=== PATIENT | female | born 1945 | race Caucasian/White ===

== ENCOUNTER 2018-10-20 17:45 | Observation (INO) ==
[2018-10-20] MEDS ORDERED: Aspirin 325 MG TABLET PO ONE (18:07)
--- NOTE | 2018-10-20 18:14 | Emergency Department Note ---
Disposition Clinical Impression: Chest pain Qualifiers: Chest pain type: unspecified Qualified Code(s): R07.9 - Chest pain, unspecified Disposition: Admitted As Inpatient Condition: Good Forms: ED Satisfaction Letter Time of Disposition: 20:53 Chest Pain HPI - General Chief Complaint: ED Chest Pain Stated Complaint: CP Time Seen by Provider: 10/20/18 17:48 Source: patient Limitations: no limitations - History of Present Illness HPI Narrative: 72 yo woman with chest pain x3 weeks that has woken her from sleep w/ radiation to jaw came to ED 10/20/18 for evaluation. She endorses 1 episode of diaphoresis w/ CP. She said nothing makes the pain worse including exertion, and nothing m akes it better although she has not tried taking NSAIDs. She has also had a stomachache with epigastric pain that has now resolved. Patient also admits feeling more fatigued since CP started. She denies N/V/D, dysuria, fever, recent illness, syncope, numbness or weakness, SOB or pain elsewhere. PMH includes open heart surgery, T2DM managed w/ metformin, COPD and asthma. She is not currently on cardiac medications. She has no history of DVT/PE. She is a former smoker. Her last cardiac workup was in 2009, although she has an appointment with a nursing home assistant in [place] on Monday that she scheduled out of concern for the CP. Severity scale (1-10): 0 - Related Data Home Medications Medication Instructions Recorded Confirmed Albuterol Neb [AccuNeb] 0.63 mg IH QID PRN 03/23/18 10/20/18 Aspirin [Lo-Dose Aspirin EC] 81 mg PO DAILY 03/23/18 10/20/18 Beclomethasone Dipropionate [QVAR 1 puff IH BID 03/23/18 10/20/18 80 mcg REDIHALER] Escitalopram [Lexapro] 30 mg PO DAILY 03/23/18 10/20/18 Ipratropium/Albuterol Sulfate 4 gm IH QID 03/23/18 10/20/18 [Combivent Respimat Inhal [place]] Levothyroxine [Synthroid] 88 mcg PO 0630 03/23/18 10/20/18 Lisinopril [Zestril] 5 mg PO DAILY 03/23/18 10/20/18 Magnesium 30 mg PO DAILY 03/23/18 10/20/18 Meclizine HCl [Verticalm] 25 mg PO QID PRN 03/23/18 10/20/18 Ondansetron [Zofran ODT] 8 mg SL Q8H PRN 03/23/18 10/20/18 Pantoprazole Sodium [Protonix] 40 mg PO DAILY 03/23/18 10/20/18 Rosuvastatin Calcium [Crestor] 10 mg PO DAILY 03/23/18 10/20/18 clonazePAM [Clonazepam] 1 mg PO BID 03/23/18 10/20/18 metFORMIN [Glucophage] 500 mg PO BIDWM 03/23/18 10/20/18 Previous Rx's Medication Instructions Recorded Nystatin [Nystatin Suspension] 5 ml PO QID #200 oral.susp 03/23/18 Allergies Allergy/AdvReac Type Severity Reaction Status Date / Time Sulfa (Sulfonamide Allergy Swelling Verified 03/23/18 12:21 Antibiotics) of Lip/Tongue/Throat Chest Pain PMH - Past Medical History Medical history: Reports: COPD, diabetes, hyperlipidemia, thyroid disease Psychiatric history: Reports: anxiety, depression - Social History Smoking Status: Never smoker Alcohol use: Reports: none Drug use: Reports: none Physical Exam Gen: AOx3, NAD HEENT: No lymphadenopathy, no erythema, no edema. Pupils equal and reactive. Cardio: Regular rate and rhythm, no murmur, no peripheral edema, good perfusion to all extremities, no cyanosis Resp: Equal breath sounds bilaterally, no wheeze, no cough GI: Abdomen soft, nondistended, +diffusely tender to palpation. No ecchymoses, no rash. : No suprapubic tenderness or distention MSK: Normal ROM, no joint swelling or erythema. Sternotomy incision well-healed. Neuro: CNI-XII intact, strength and sensation WNL Psych: Appropriate affect - General Limitations: no limitations General appearance: alert Course Course Narrative: VS stable, patient states HR is normally in 50s. She endorses intermittent epigastric chest pain that continues in ED. EKG, troponin, CBC, CMP, hepatic panel, lipase, CT abd/pelvis ordered. Given 1 NG tab SL for pain relief. - Reevaluation(s) Reevaluation #1: Patient agrees with plan to admit. Her abdominal pain is continuing, but mild. VS stable and BP again normotensive. Time: 20:30 Vital Signs Temperature 98 F 10/20/18 17:53 Pulse Rate 55 10/20/18 17:53 Respiratory Rate 14 10/20/18 17:53 Blood Pressure 128/79 10/20/18 17:53 O2 Sat by Pulse Oximetry 98 10/20/18 17:53 Temperature 98 F 10/20/18 17:53 Pulse Rate 47 10/20/18 20:13 Respiratory Rate 16 10/20/18 20:13 Blood Pressure 128/71 10/20/18 20:13 O2 Sat by Pulse Oximetry 99 10/20/18 20:13 Oxygen Delivery Oxygen Delivery Room Air Chest Pain - MDM Narrative Medical decision making narrative: BP dropped with NG, although patient reported pain completely relieved for a time with NG. Lipase elevated, but no signs of pancreatitis on CT abd/pelvis. Imaging did detect septated 4.cm renal cyst on right kidney. HEART score 6 with neg troponin and no ischemic changes on EKG. CXR negative. Given HEART score, however, plan to admit patient for further evaluation. - Differential Diagnosis Likely: chest pain - Medical Records Medical records reviewed: Yes I reviewed the patient's medical records. - Lab Data Lab results reviewed: Yes I reviewed the patient's lab results. Result diagrams: 10/20/18 17:50 10/20/18 17:50 Lab Results 10/20/18 10/20/18 Range/Units 17:50 17:50 WBC 6.0 (4.3-11.1) K/mcL RBC 4.92 (3.82-4.97) M/mcL Hgb 14.7 (11.5-15.4) g/dL Hct 44.3 (35.3-44.9) % MCV 90.0 (83.0-100.0) fL MCH 29.9 (28.0-33.3) pg MCHC 33.2 (31.6-35.5) g/dL RDW 12.7 (11.5-14.5) % Plt Count 204 (140-400) K/mcL MPV 10.1 (9.4-12.4) fL Immature Gran % 0.2 (0-4) % Seg Neutrophils % 52.2 % Lymphocytes % 33.6 % Monocytes % 8.7 % Eosinophils % 5.0 % Basophils % 0.3 % Neutrophils # 3.1 (1.6-8.9) K/mcL Lymphocytes # 2.0 (0.6-4.6) K/mcL Monocytes # 0.5 (0.0-1.3) K/mcL Eosinophils # 0.3 (0.0-0.6) K/mcL Basophils # 0.0 (0.0-0.2) K/mcL Sodium 138 (136-145) mEq/L Potassium 4.1 (3.5-5.1) mEq/L Chloride 106 (98-107) mEq/L Carbon Dioxide 26 (23-29) mEq/L BUN 9 (8-23) mg/dL Creatinine 0.85 (0.60-1.20) mg/dL Est GFR ( Amer) > 60 (> 60) Est GFR (Non-Af Amer) > 60 (> 60) BUN/Creatinine Ratio 11 (6-26) Glucose 91 (70-105) mg/dL Calculated Osmolality 284 (280-300) Calcium 10.3 (8.6-10.3) mg/dL Total Bilirubin 0.4 (0.3-1.0) mg/dL Direct Bilirubin 0.1 (0.0-0.2) mg/dL Indirect Bilirubin 0.3 (0.0-1.2) mg/dL AST 16 (13-39) Units/L ALT 11 (7-52) Units/L Alkaline Phosphatase 44 (34-104) Units/L Troponin I < 0.03 (< 0.04) ng/mL Serum Total Protein 6.7 (6.4-8.9) g/dL Albumin 4.4 (3.5-5.7) g/dL Globulin 2.3 L (2.4-3.5) g/dL Albumin/Globulin Ratio 1.9 (1.1-2.2) Lipase 352 H (11-82) Units/L - Radiology Data Radiology results reviewed: Yes I reviewed the patient's radiology results. Chest X-Ray 10/20/18 18:21 IMPRESSION: No acute process. D/ / Arnoldo Walsh MD / Arnoldo Walsh MD Interpreting Provider: Arnoldo Walsh MD Abdomen/Pelvis CT 10/20/18 19:35 IMPRESSION: Nonobstructing right nephrolithiasis. 4.9 cm complex right renal cyst. Emphysema. D/ / Krishna Dumont MD / Krishna Dumont MD Interpreting Provider: Krishna Dumont MD - EKG Data EKG attestation: Yes I reviewed and interpreted this EKG. EKG shows normal: sinus rhythm Rate: bradycardia (HR 59) Rhythm: NSR Interpretation: normal EKG Heart Score - Score History: Highly Suspicious EKG: Normal Age: Greater than 65 Risk Factors: Equal/Greater than 3 risk factor or history of atherosclerotic disease Troponin: Less than normal limit HEART Score Total: 6
[2018-10-20 18:26] LABS: Basophils % 0.3 %; Eosinophils # 0.3 K/mcL (0.0-0.6); Hematocrit 44.3 % (35.3-44.9); Hemoglobin 14.7 g/dL (11.5-15.4); Immature Granulocytes % 0.2 % (0-4); Lymphocytes % 33.6 %; Mean Corpuscular HGB Conc 33.2 g/dL (31.6-35.5); Mean Corpuscular Hemoglobin 29.9 pg (28.0-33.3); Mean Platelet Volume 10.1 fL (9.4-12.4); Monocytes # 0.5 K/mcL (0.0-1.3); Monocytes % 8.7 %; Neutrophils # 3.1 K/mcL (1.6-8.9); Platelet Count 204 K/mcL (140-400); Red Blood Count 4.92 M/mcL (3.82-4.97); Red Cell Distribution Width 12.7 % (11.5-14.5); Segmented Neutrophils % 52.2 %
[2018-10-20] MEDS: Nitroglycerin 0.4 MG TAB.SUBL SL SCH ×2 (18:31→22:30)
[2018-10-20 18:49] LABS: Alanine Aminotransferase 11 Units/L (7-52); Albumin 4.4 g/dL (3.5-5.7); Albumin/Globulin Ratio 1.9 (1.1-2.2); Alkaline Phosphatase 44 Units/L (34-104); Aspartate Amino Transferase 16 Units/L (13-39); BUN/Creatinine Ratio 11 (6-26); Bilirubin,Direct 0.1 mg/dL (0.0-0.2); Bilirubin,Indirect 0.3 mg/dL (0.0-1.2); Bilirubin,Total 0.4 mg/dL (0.3-1.0); Blood Urea Nitrogen 9 mg/dL (8-23); Calcium 10.3 mg/dL (8.6-10.3); Carbon Dioxide 26 mEq/L (23-29); Chloride 106 mEq/L (98-107); Globulin 2.3 g/dL (2.4-3.5); Glucose 91 mg/dL (70-105); Lipase 352 Units/L (11-82); Osmolality,Calculated 284 (280-300); Potassium 4.1 mEq/L (3.5-5.1); Sodium 138 mEq/L (136-145); Total Protein 6.7 g/dL (6.4-8.9); Troponin I < 0.03 ng/mL (< 0.04); eGFR For African Americans > 60 (> 60); eGFR For Non-African Americans > 60 (> 60)
[2018-10-20] MEDS ORDERED: Isovue-370 500 ML BOTTLE IVP ONE (18:53)
[2018-10-20] MEDS ORDERED: *HR* FentaNYL (PF) 100 MCG/2 ML VIAL IVP ONE (19:46)
--- NOTE | 2018-10-20 20:58 | Emergency Department Note ---
Disposition Clinical Impression: Chest pain Qualifiers: Chest pain type: unspecified Qualified Code(s): R07.9 - Chest pain, unspecified Disposition: Admitted As Inpatient Condition: Good Time of Disposition: 20:53 General Adult HPI - General Chief complaint: ED Chest Pain Stated complaint: CP Time Seen by Provider: 10/20/18 17:48 Source: patient Limitations: no limitations - History of Present Illness Pain Scale: 0 - Related Data Home Medications Medication Instructions Recorded Confirmed Aspirin [Lo-Dose Aspirin EC] 81 mg PO DAILY 03/23/18 10/21/18 Ipratropium/Albuterol Sulfate 4 gm IH TID 03/23/18 10/21/18 [Combivent Respimat Inhal [place]] Levothyroxine [Synthroid] 88 mcg PO 0630 03/23/18 10/21/18 Lisinopril [Zestril] 5 mg PO QAM 03/23/18 10/21/18 Meclizine HCl [Verticalm] 25 mg PO QID PRN 03/23/18 10/21/18 Pantoprazole Sodium [Protonix] 40 mg PO QAM 03/23/18 10/21/18 Rosuvastatin Calcium [Crestor] 10 mg PO QPM 03/23/18 10/21/18 clonazePAM [Clonazepam] 1 mg PO BID 03/23/18 10/21/18 metFORMIN [Glucophage] 500 mg PO BIDWM 03/23/18 10/21/18 Biotin 1 mg PO QAM 10/21/18 10/21/18 Cetirizine HCl [Allergy Relief] 10 mg PO BID 10/21/18 10/21/18 Escitalopram [Lexapro] 30 mg PO QAM 10/21/18 10/21/18 Lubiprostone [Amitiza] 24 mcg PO DAILY 10/21/18 10/21/18 Magnesium 250 mg PO QPM 10/21/18 10/21/18 Allergies Allergy/AdvReac Type Severity Reaction Status Date / Time Sulfa (Sulfonamide Allergy Swelling Verified 10/21/18 16:30 Antibiotics) of Lip/Tongue/Throat Past Medical History - Past Medical History Medical history: Reports: COPD, diabetes, hyperlipidemia, thyroid disease Psychiatric history: Reports: anxiety, depression - Social History Smoking Status: Never smoker Smokeless Tobacco Status: No Alcohol use: Reports: none Drug use: Reports: none Physical Exam - General Limitations: no limitations General appearance: alert Course Vital Signs Temperature 98 F 10/20/18 17:53 Pulse Rate 55 10/20/18 17:53 Respiratory Rate 14 10/20/18 17:53 Blood Pressure 128/79 10/20/18 17:53 O2 Sat by Pulse Oximetry 98 10/20/18 17:53 Temperature 97.7 F 10/22/18 12:18 Pulse Rate 57 10/22/18 12:18 Respiratory Rate 17 10/22/18 12:18 Blood Pressure 122/74 10/22/18 12:18 O2 Sat by Pulse Oximetry 94 10/22/18 12:18 Oxygen Delivery Oxygen Delivery Room Air Medical Decision Making - Lab Data Result diagrams: 10/20/18 17:50 10/21/18 00:12 Lab Results 10/20/18 10/20/18 10/20/18 Range/Units 17:50 17:50 17:50 WBC 6.0 (4.3-11.1) K/mcL RBC 4.92 (3.82-4.97) M/mcL Hgb 14.7 (11.5-15.4) g/dL Hct 44.3 (35.3-44.9) % MCV 90.0 (83.0-100.0) fL MCH 29.9 (28.0-33.3) pg MCHC 33.2 (31.6-35.5) g/dL RDW 12.7 (11.5-14.5) % Plt Count 204 (140-400) K/mcL MPV 10.1 (9.4-12.4) fL Immature Gran % 0.2 (0-4) % Seg Neutrophils % 52.2 % Lymphocytes % 33.6 % Monocytes % 8.7 % Eosinophils % 5.0 % Basophils % 0.3 % Neutrophils # 3.1 (1.6-8.9) K/mcL Lymphocytes # 2.0 (0.6-4.6) K/mcL Monocytes # 0.5 (0.0-1.3) K/mcL Eosinophils # 0.3 (0.0-0.6) K/mcL Basophils # 0.0 (0.0-0.2) K/mcL Sodium 138 (136-145) mEq/L Potassium 4.1 (3.5-5.1) mEq/L Chloride 106 (98-107) mEq/L Carbon Dioxide 26 (23-29) mEq/L BUN 9 (8-23) mg/dL Creatinine 0.85 (0.60-1.20) mg/dL Est GFR ( Amer) > 60 (> 60) Est GFR (Non-Af Amer) > 60 (> 60) BUN/Creatinine Ratio 11 (6-26) Glucose 91 (70-105) mg/dL Est Mean Plasma Glucose 128 mg/dl Hemoglobin A1c 6.1 H ( - 5.6) % Calculated Osmolality 284 (280-300) Calcium 10.3 (8.6-10.3) mg/dL Total Bilirubin 0.4 (0.3-1.0) mg/dL Direct Bilirubin 0.1 (0.0-0.2) mg/dL Indirect Bilirubin 0.3 (0.0-1.2) mg/dL AST 16 (13-39) Units/L ALT 11 (7-52) Units/L Alkaline Phosphatase 44 (34-104) Units/L Troponin I < 0.03 (< 0.04) ng/mL Serum Total Protein 6.7 (6.4-8.9) g/dL Albumin 4.4 (3.5-5.7) g/dL Globulin 2.3 L (2.4-3.5) g/dL Albumin/Globulin Ratio 1.9 (1.1-2.2) Lipase 352 H (11-82) Units/L Attestation Statement - Attestation Attestation: I examined this patient and my medical decision-making was reviewed with the Resident Physician. I agree with the documented findings, disposition and treatment plan as described except to the extent set forth below. The patient 72-year-old female that presents to emergency department with chief complaint of chest pain. Patient reports that she has prior history of a bypass and states that she has been having intermittent discomfort in her chest. Patient states that time she has had some discomfort in her jaw states she also has had some discomfort in her abdomen as well. Exam patient is awake alert in no acute distress Medical decision management patient's pain was relieved with sublingual nitroglycerin. The patient received aspirin in the ER and also underwent EKG and laboratory testing. The patient's lipase was minimally elevated at CT scan of the abdomen and pelvis showed no evidence of acute pancreatitis. I did show that there was a renal cyst the patient will be admitted to the hospitalist service due to her heart score being 6 I personally supervised and was present for the garvin/critical portions of the following procedures completed by the resident:EKG.
[2018-10-20] MEDS ORDERED: Nitroglycerin 0.4 MG TAB.SUBL SL PRN (21:42)
[2018-10-20] MEDS ORDERED: Ondansetron ODT 4 MG TAB.RAPDIS SL PRN (21:57)
[2018-10-20] MEDS ORDERED: Albuterol Neb 0.63 MG/3 ML VIAL IH PRN (21:57)
--- NOTE | 2018-10-20 22:07 | Internal Med History&Physical ---
Date of Encounter: 10/20/18 Time of Encounter: 22:01 Internal Medicine - H&P: HPI Chief complaint: Chest Pain History of present illness: Ms. Escoto is a 72 year old female with past medical history of COPD, type 2 diabetes, hyperlipidemia, hypertension, CAD s/p CABG who presented to the ED with plans of intermittent chest pain which began around 3 PM this afternoon wh ile the patient was sitting on the couch. Pain was nonradiating episodic and appeared to increase in frequency throughout the day. No aggravating or alleviating factors however pain did resolve after receiving sublingual nitroglycerin here in the ED. Patient also reports that approximately 3 weeks ago she had similar chest pain this time with radiation to her jaw that awoke her from sleep associated with intermittent diaphoresis. This episode was similar to her previous ischemic episode she suffered at the age of 47 but much less in severity, and as a result did not seek medical attention at the time. No reports of aggravating or alleviating factors. She had been living in [place] where a stress test was attempted in 2009 but, patient states she did not tolerate pharmacological stress testing due to anxiety nor nuclear stress testing because of her COPD. Patient reports she has an appointment with a picker box operator up in [place] on Monday where her son resides. Patient also reporting epigastric abdominal pain for the past 3 days which became progressively worse last night associated with bloating. Pain seemed to being exacerbated with food and would then resolve. However last night pain persisted and did not improve. Pain eventually subsided around 1:30 AM. Pain appeared to improve laying down on her stomach. Reports her gallbladder is intact. She denies N/V/D, dysuria, fever, recent illness, syncope, numbness or weakness, SOB or pain elsewhere. Patient also reported previous history of dysphagia requiring balloon dilatation of her esophagus in the remote past. She states that she is careful with regard to avoiding eating meat and other solid foods but has not had any issues recently. Patient is a former smoker and quit shortly after open heart procedure. On arrival patient was afebrile, hemodynamically stable. Laboratory workup was unremarkable aside from a elevated lipase of over 320. EKG showed sinus bradycardia with a heart rate of 56 in the absence of any ST or T-wave changes concerning for ischemia. A CT scan of the abdomen in the setting of her epigastric pain was performed which was notable for a nonobstructing right nephrolithiasis and a 4.9 cm complex right renal cyst. Patient admitted for chest pain evaluation. Past Med Surg Social Fam HX - Past Medical History Medical history: COPD, diabetes, hyperlipidemia, thyroid disease Additional medical history: heart disease Psychiatric history: anxiety, depression - Past Surgical History Additional surgical history: open heart-. 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 - Social History Smoking Status: Never smoker Smokeless Tobacco Status: No Alcohol use: none Drug use: none - Family History Father Hx Family Cardiac Disorders: Yes ([place], CAD) Internal Medicine - H&P: Meds Aspirin [Lo-Dose Aspirin EC] 81 mg PO DAILY 03/23/18 [History] Ipratropium/Albuterol Sulfate [Combivent Respimat Inhal [place]] 4 gm IH TID 03/23/18 [History] Levothyroxine [Synthroid] 88 mcg PO 0630 03/23/18 [History] Lisinopril [Zestril] 5 mg PO QAM 03/23/18 [History] Meclizine HCl [Verticalm] 25 mg PO QID PRN 03/23/18 [History] Pantoprazole Sodium [Protonix] 40 mg PO QAM 03/23/18 [History] Rosuvastatin Calcium [Crestor] 10 mg PO QPM 03/23/18 [History] clonazePAM [Clonazepam] 1 mg PO BID 03/23/18 [History] metFORMIN [Glucophage] 500 mg PO BIDWM 03/23/18 [History] Biotin 1 mg PO QAM 10/21/18 [History] Cetirizine HCl [Allergy Relief] 10 mg PO BID 10/21/18 [History] Escitalopram [Lexapro] 30 mg PO QAM 10/21/18 [History] Lubiprostone [Amitiza] 24 mcg PO DAILY 10/21/18 [History] Magnesium 250 mg PO QPM 10/21/18 [History] Allergy/AdvReac Type Severity Reaction Status Date / Time Sulfa (Sulfonamide Allergy Swelling Verified 10/21/18 16:30 Antibiotics) of Lip/Tongue/Throat All Systems PM: A 10-system review of systems was performed and is negative for pertinent findings except as documented above in the HPI. - Constitutional Constitutional: no chills, no fever(s), no night sweats - EENT Eyes: no change in vision, no discharge, no pain, no photophobia Ears: no ear discharge, no ear pain, no tinnitus Nose, mouth and throat: no dysphagia, no nasal discharge, no neck pain, no sore throat - Cardiovascular Cardiovascular ROS IM: no chest pain, no diaphoresis, no dyspnea, no lightheadedness, no palpitations, no syncope - Respiratory Respiratory: no cough, no dyspnea, no wheezing, no excessive phlegm production - Gastrointestinal Gastrointestinal: no abdominal pain, no diarrhea, no hematemesis, no hematochezia, no melena, no nausea, no vomiting - Genitourinary Genitourinary: no change in urinary stream, no dysuria, no flank pain, no hematuria - Musculoskeletal Musculoskeletal ROS IM: no numbness, no tingling - Integumentary Integumentary IM: no rash, no unusual bruising - Neurological Neurological ROS: no confusion, no convulsions, no focal weakness, no numbness, no tingling, no tremor(s) - Hematologic/Lymphatic Hematologic/Lymphatic: no easy bruising - Constitutional Vitals: Temp Pulse Resp BP Pulse Ox 98.1 F 46 16 129/60 92 10/20/18 21:56 10/20/18 21:56 10/20/18 21:56 10/20/18 21:56 10/20/18 21:56 Exam: General: Alert and oriented Skin:Normal color, no rash, no lesions. HEENT:EOM, pupils equal, round and reactive. Cardiovascular:Normal S1 & S2, no rubs, murmurs or gallops. No JVD. Pulse regular. Lungs:Normal breath sounds, no wheezes or crackles. Abdomen:Soft, mild tenderness to palpation diffusely Extremities:No deformity, no edema or tenderness, no joint swelling or clubbing. Neurological:Normal cognition and motor skills. Pulses:Carotid and radial pulses normal +2. Rest of the physical exam is non contributory Internal Med - H&P Results - Labs CBC & Chem 7: 10/20/18 17:50 10/21/18 00:12 Labs: Short CBC 10/20/18 Range/Units 17:50 WBC 6.0 (4.3-11.1) K/mcL Hgb 14.7 (11.5-15.4) g/dL Hct 44.3 (35.3-44.9) % Plt Count 204 (140-400) K/mcL Neutrophils # 3.1 (1.6-8.9) K/mcL BMP 10/20/18 17:50 Sodium 138 Potassium 4.1 Chloride 106 Carbon Dioxide 26 BUN 9 Creatinine 0.85 Glucose 91 Calcium 10.3 Cardiac Enzymes 10/20/18 Range/Units 17:50 Troponin I < 0.03 (< 0.04) ng/mL Liver Function 10/20/18 Range/Units 17:50 Total Bilirubin 0.4 (0.3-1.0) mg/dL Direct Bilirubin 0.1 (0.0-0.2) mg/dL AST 16 (13-39) Units/L ALT 11 (7-52) Units/L Alkaline Phosphatase 44 (34-104) Units/L Albumin 4.4 (3.5-5.7) g/dL - Impressions ITS Impressions Chest X-Ray 10/20/18 18:21 IMPRESSION: No acute process. D/ / Arnoldo Walsh MD / Arnoldo Walsh MD Interpreting Provider: Arnoldo Walsh MD Abdomen/Pelvis CT 10/20/18 19:35 IMPRESSION: Nonobstructing right nephrolithiasis. 4.9 cm complex right renal cyst. Emphysema. D/ / Krishna Dumont MD / Krishna Dumont MD Interpreting Provider: Krishna Dumont MD - Assessment and Plan (1) Chest pain Current Visit: Yes Status: Acute Assessment and plan: 72-year-old female with history of coronary artery disease status post open heart revascularization at the age of 47 presenting with intermittent episodes of substernal chest pain earlier today and reports of an episode of chest pain waking her up with radiation to the jaw similar presentation to previous [place] but with a lesser degree of severity. Improved nitroglycerin. Initial EKG shows sinus bradycardia with a heart rate of 56 with no evidence of ischemia, similar to previous EKG in 2014. Initial troponin negative. Differential includes unstable angina, esophageal spasm, biliary colic or pancreatitis. -Telemetry -Trend troponin -Echocardiogram -Patient states that she has an appointment with cardiology in [place] on Monday. At this time and if troponins remain negative would recommend stress testing, however, due to patient's reported intolerance to pharmacological stress testing, and bronchospastic disease, would discuss with cardiology before proceeding with an appropriate stress testing modality. -Consider cardiology consult Qualifiers: Chest pain type: unspecified Qualified Code(s): R07.9 - Chest pain, unspecified (2) Elevated lipase Current Visit: Yes Status: Acute Assessment and plan: Patient found to have elevated lipase of 352 in the setting of reported 3 day history of epigastric pain which improved by laying on her stomach. CT scan of her abdomen showing no evidence of acute pancreatitis. Unclear patient passed a stone, no elevation in LFTs, but does state her gallbladder is intact -We will reassess lipase in the morning -Consider further workup with a right upper quadrant ultrasound. (3) COPD (chronic obstructive pulmonary disease) Current Visit: Yes Status: Acute Assessment and plan: No evidence of acute exacerbation. -Resume home inhalers Qualifiers: COPD type: unspecified COPD Qualified Code(s): J44.9 - Chronic obstructive pulmonary disease, unspecified (4) CAD (coronary artery disease) Current Visit: Yes Status: Acute Assessment and plan: History of coronary artery disease status post open heart revascularization at the age of 47. -Continue aspirin and GEO inhibitor. Patient not currently on beta daksha possibly due to bronchospastic disease. Qualifiers: Associated angina: with unspecified angina Qualified Code(s): I25.119 - Atherosclerotic heart disease of [place] coronary artery with unspecified angina pectoris (5) DVT prophylaxis Current Visit: Yes Status: Acute Assessment and plan: Subcutaneous heparin - Time Spent With Patient Total time spent is greater than 50% in coordination of care (as documented) at patient's floor/unit and/or counseling patient:
[2018-10-20] MEDS: clonazePAM 1 MG TABLET PO SCH (23:05)
[2018-10-20] MEDS: *HR* Heparin 5,000 UNIT/ML VIAL SQ SCH (23:05)
[2018-10-21 00:44] LABS: BUN/Creatinine Ratio 8 (6-26); Blood Urea Nitrogen 7 mg/dL (8-23); Calcium 9.2 mg/dL (8.6-10.3); Carbon Dioxide 25 mEq/L (23-29); Chloride 107 mEq/L (98-107); Glucose 162 mg/dL (70-105); Osmolality,Calculated 290 (280-300); Potassium 3.7 mEq/L (3.5-5.1); Sodium 139 mEq/L (136-145); eGFR For African Americans > 60 (> 60); eGFR For Non-African Americans > 60 (> 60)
[2018-10-21] MEDS: *HR* Heparin 5,000 UNIT/ML VIAL SQ SCH ×3 (05:12→20:45)
[2018-10-21 06:46] LABS: Estimated Average Glucose 128 mg/dl
[2018-10-21] MEDS ORDERED: NON-FORMULARY MEDICATION 1 EACH EACH (Magnesium 30 MG) PO SCH (09:00)
[2018-10-21] MEDS: (Combivent Respimat InHALER) IH SCH ×2 (09:03→11:38)
[2018-10-21] MEDS: Aspirin 81 MG TAB.CHEW PO SCH (09:10)
[2018-10-21] MEDS: clonazePAM 1 MG TABLET PO SCH ×2 (09:11→20:45)
[2018-10-21] MEDS ORDERED: QVAR 80 MCG IH SCH (10:00)
--- NOTE | 2018-10-21 12:53 | Internal Med Progress Note ---
Hospitalist Progress Note - Encounter Date of Encounter: 10/21/18 Time of Encounter: 12:33 - Subjective Interval History: Was seen and examined at bedside we did have a long discussion concerning cardiac stress test patient is adamant that she does not want to proceed with a stress test and that she does have an appointment with cardiology in [place] on Monday. We will perform upper quadrant US Lipas slightly elevated some slight tenderness to palpation in right quadrant. Discussed treatment plan with the patient who verbalizes understanding - Exam Vitals: Temp Pulse Resp BP Pulse Ox 97.8 F 52 16 106/70 91 10/21/18 11:05 10/21/18 11:05 10/21/18 11:05 10/21/18 11:05 10/21/18 11:05 Exam: General: Alert and oriented Skin:Normal color, no rash, no lesions. HEENT:EOM, pupils equal, round and reactive. Cardiovascular:Normal S1 & S2, no rubs, murmurs or gallops. No JVD. Pulse regular. Lungs:Normal breath sounds, no wheezes or crackles. Abdomen:Soft, mild tenderness to palpation diffusely Extremities:No deformity, no edema or tenderness, no joint swelling or clubbing. Neurological:Normal cognition and motor skills. Pulses:Carotid and radial pulses normal +2. Rest of the physical exam is non contributory - Assessment and Plan (1) Chest pain Current Visit: Yes Status: Acute Assessment and Plan: 72-year-old female with history of coronary artery disease status post open heart revascularization at the age of 47 presenting with intermittent episodes of substernal chest pain earlier today and reports of an episode of chest pain waking her up with radiation to the jaw similar presentation to previous OR but with a lesser degree of severity. Improved nitroglycerin. Initial EKG shows sinus bradycardia with a heart rate of 56 with no evidence of ischemia, similar to previous EKG in 2014. Initial troponin negative. Differential includes unstable angina, esophageal spasm, biliary colic or pancreatitis. -Telemetry -Trend troponin -Echocardiogram -Patient states that she has an appointment with cardiology in [place] on Monday. At this time and if troponins remain negative would recommend stress testing, however, due to patient's reported intolerance to pharmacological stress testing, and bronchospastic disease, would discuss with cardiology before proceeding with an appropriate stress testing modality. -Consider cardiology consult 10/21 Patient has not had any chest pain during this visit EKG with no acute changes Troponins have been negative 3 Echocardiogram is pending at this time Patient is refusing cardiac stress test-would like to follow-up with cardiology in [place] she has appointment on Monday We will consult cardiology I will also check a right upper quadrant ultrasound to rule out gallbladder may be contributing to her discomfort (2) Elevated lipase Current Visit: Yes Status: Acute Assessment and Plan: Patient found to have elevated lipase of 352 in the setting of reported 3 day history of epigastric pain which improved by laying on her stomach. CT scan of her abdomen showing no evidence of acute pancreatitis. Unclear patient passed a stone, no elevation in LFTs, but does state her gallbladder is intact -We will reassess lipase in the morning -Consider further workup with a right upper quadrant ultrasound. 10/21 She did have elevated lipase at 352. Presentation CT scan does not show any evidence of pancreatitis LFTs within normal limits Placed down this morning however continues to experience some tenderness and right upper quadrant We will check right upper quadrant ultrasound (3) COPD (chronic obstructive pulmonary disease) Current Visit: Yes Status: Acute Assessment and Plan: No evidence of acute exacerbation. -Resume home inhalers (4) CAD (coronary artery disease) Current Visit: Yes Status: Acute Assessment and Plan: History of coronary artery disease status post open heart revascularization at the age of 47. -Continue aspirin and GEO inhibitor. Patient not currently on beta daksha possibly due to bronchospastic disease. (5) DVT prophylaxis Current Visit: Yes Status: Acute Assessment and Plan: Subcutaneous heparin - Time Spent with Patient Total time spent is greater than 50% in coordination of care (as documented) at patient's floor/unit and/or counseling patient: Internal Medicine: Result - Labs CBC & Chem 7: 10/20/18 17:50 10/21/18 00:12 Labs: Short CBC 10/20/18 Range/Units 17:50 WBC 6.0 (4.3-11.1) K/mcL Hgb 14.7 (11.5-15.4) g/dL Hct 44.3 (35.3-44.9) % Plt Count 204 (140-400) K/mcL Neutrophils # 3.1 (1.6-8.9) K/mcL BMP 10/20/18 10/21/18 17:50 00:12 Sodium 138 139 Potassium 4.1 3.7 Chloride 106 107 Carbon Dioxide 26 25 BUN 9 7 L Creatinine 0.85 0.89 Glucose 91 162 H Calcium 10.3 9.2 Cardiac Enzymes 10/20/18 10/21/18 Range/Units 17:50 00:12 Troponin I < 0.03 < 0.03 (< 0.04) ng/mL Liver Function 10/20/18 Range/Units 17:50 Total Bilirubin 0.4 (0.3-1.0) mg/dL Direct Bilirubin 0.1 (0.0-0.2) mg/dL AST 16 (13-39) Units/L ALT 11 (7-52) Units/L Alkaline Phosphatase 44 (34-104) Units/L Albumin 4.4 (3.5-5.7) g/dL - Impressions Impressions Chest X-Ray 10/20/18 18:21 IMPRESSION: No acute process. D/ / Arnoldo Walsh MD / Arnoldo Walsh MD Interpreting Provider: Arnoldo Walsh MD Abdomen/Pelvis CT 10/20/18 19:35 IMPRESSION: Nonobstructing right nephrolithiasis. 4.9 cm complex right renal cyst. Emphysema. D/ / Krishna Dumont MD / Krishna Dumont MD Interpreting Provider: Krishna Dumont MD Consult Discharge Plan - Plan Referrals: Chacha Grace APN [Primary Care Provider] - (1) Chest pain Qualifiers: Chest pain type: unspecified Qualified Code(s): R07.9 - Chest pain, unspecified (3) COPD (chronic obstructive pulmonary disease) Qualifiers: COPD type: unspecified COPD Qualified Code(s): J44.9 - Chronic obstructive pulmonary disease, unspecified
[2018-10-21] MEDS: Ipratropium/Albuterol Neb 3 ML IH SCH ×2 (16:03→22:05)
[2018-10-22] MEDS: Ipratropium/Albuterol Neb 3 ML IH SCH ×5 (04:52→23:53)
[2018-10-22] MEDS: *HR* Heparin 5,000 UNIT/ML VIAL SQ SCH ×3 (05:10→21:01)
--- NOTE | 2018-10-22 11:43 | Cardiology Consult Note ---
Date of Encounter: 10/22/18 Time of Encounter: 12:58 Assessment and Plan (1) Chest pain Current Visit: Yes Status: Acute 1. Intermittent chest pain over 3 weeks radiated to jaw; relieved by Nitro SL x 1. Troponins negative x 3. Currently chest pain free. 2. Previously patient states she did not tolerate pharmacological stress testing due to anxiety nor nuclear stress testing because of her COPD. 3. EKG reviewed with no ischemic changes. 24Hr telemetry ave HR 58 sinus wesley on telemetry. 4. On Nitro SL PRN, continue. 4. Echo ordered. Discussed with patient and Dr. Quintero and will consider necessary recs after Echo review. Qualifiers: Chest pain type: unspecified Qualified Code(s): R07.9 - Chest pain, unspecified (2) CAD (coronary artery disease) Current Visit: Yes Status: Acute 1. Previous CABG at age 47 completed at [facility]. 2. On ASA, Statin, ACEI, continue. 3. Does not curretnly follow with a web content producer. Will schedule f/u with [facility] s/p admission. 4. Discussed and reviewed with Dr. Quintero. Qualifiers: Associated angina: with unspecified angina Qualified Code(s): I25.119 - Atherosclerotic heart disease of [place] coronary artery with unspecified angina pectoris Discussion w patient/family: The assessment and plan as outlined above was discussed with the patient and/or family members who expressed understanding and agreement. All questions were answered. Thank you for involving us in the care of your patient. Please call with any questions. History of Present Illness Consult date: 10/22/18 Consult reason: chest pain Chief complaint: chest pain History of present illness: Ms. Escoto is a 72 year old female PMH of COPD, DM2, HLD, HTN, CAD s/p CABG, former smoker. Appt. with web content producer in [place] appt 10/23/18 cancelled. Consulted for intermittent non-radiating chest pain at rest that worsened throughout the day yesterday. Treated with Ntiro SL in ED and resolved. Admits to recent chest pain, diaphoresis episode with radiation to jaw x 3 weeks ago. A dmits to epigastric pain, bloating x 3 days worsening yesterday, aggravated with meals then resolves. Denies syncope, palpitations, diaphoresis, SOB, n/v, n/t, fevers, chills. Denies other alleviating/aggravating factors. Past Med Surg Social Fam HX - Past Medical History Attestation: Yes The following information was validated with the patient. 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 - Social History Smoking Status: Never smoker Smokeless Tobacco Status: No Alcohol use: none Drug use: none - Family History Father Hx Family Cardiac Disorders: Yes (MS, CAD) Medications and Allergies Aspirin [Lo-Dose Aspirin EC] 81 mg PO DAILY 03/23/18 [History] Ipratropium/Albuterol Sulfate [Combivent Respimat Inhal [place]] 4 gm IH TID 03/23/18 [History] Levothyroxine [Synthroid] 88 mcg PO 0630 03/23/18 [History] Lisinopril [Zestril] 5 mg PO QAM 03/23/18 [History] Meclizine HCl [Verticalm] 25 mg PO QID PRN 03/23/18 [History] Pantoprazole Sodium [Protonix] 40 mg PO QAM 03/23/18 [History] Rosuvastatin Calcium [Crestor] 10 mg PO QPM 03/23/18 [History] clonazePAM [Clonazepam] 1 mg PO BID 03/23/18 [History] metFORMIN [Glucophage] 500 mg PO BIDWM 03/23/18 [History] Biotin 1 mg PO QAM 10/21/18 [History] Cetirizine HCl [Allergy Relief] 10 mg PO BID 10/21/18 [History] Escitalopram [Lexapro] 30 mg PO QAM 10/21/18 [History] Lubiprostone [Amitiza] 24 mcg PO DAILY 10/21/18 [History] Magnesium 250 mg PO QPM 10/21/18 [History] Allergy/AdvReac Type Severity Reaction Status Date / Time Sulfa (Sulfonamide Allergy Swelling Verified 10/21/18 16:30 Antibiotics) of Lip/Tongue/Throat All Systems Review: The remainder of the systems were reviewed and are negative - Cardiovascular Cardiovascular: as per HPI Physical Examination Vital Signs, Last 4 Hours Temp Pulse Resp BP Pulse Ox 10/22/18 10:07 16 98 10/22/18 07:38 97.8 F 53 16 101/54 90 General: Conversant, No Apparent Distress HEENT: Atraumatic, Normocephaly, Mucus Membranes Moist Neck: No JVD, Normal carotid pulses Cardiac: Reg Rate and Rhythm, Normal S1 and S2, No Murmur Lungs: Normal Breath Sounds, No Wheeze, Rales, Rhonchi Neuro: Alert and responsive, No focal deficits noted Abdomen: Soft, Non-Tender Skin: No rashes noted on visualized skin Musculoskeletal: No Chest Wall Tenderness Extremities: No Clubbing, No Cyanosis, No Edema, Normal Pulses Results 10/20/18 17:50 10/21/18 00:12 Laboratory Tests 10/20/18 10/21/18 10/21/18 17:50 00:12 00:12 Hgb 14.7 Hct 44.3 BUN 7 L Creatinine 0.89 Est GFR (Non-Af Amer) > 60 Lipase 106 H Laboratory Tests 10/20/18 10/21/18 17:50 00:12 Troponin I < 0.03 < 0.03 Selected Entries 10/21/18 19:45 10/21/18 23:44 10/22/18 03:25 Blood Pressure 101/57 96/52 96/60 10/22/18 07:38 10/22/18 12:18 Blood Pressure 101/54 122/74 Impressions Gallbladder Ultrasound 10/22/18 09:33 IMPRESSION: 1. No evidence of cholecystitis. 2. Mild hepatic steatosis. D/ / Manish Gonzalez MD / Manish Gonzalez MD Interpreting Provider: Manish Gonzalez MD Active Medications Albuterol Sulfate (Accuneb) 0.63 mg IH QIDR PRN PRN Reason: Shortness Of Breath Stop: 04/21/19 21:58 Albuterol/Ipratropium (Duoneb) 3 ml IH QIDR [facility] Stop: 04/22/19 05:01 Last Admin: 10/22/18 10:07 Dose: 3 ml Documented by: Aspirin (Aspirin) 81 mg PO DAILY [facility] Stop: 04/22/19 09:01 Last Admin: 10/21/18 09:10 Dose: 81 mg Documented by: Atorvastatin Calcium (Lipitor) 20 mg PO DAILY [facility] Stop: 04/22/19 09:01 Last Admin: 10/21/18 09:10 Dose: 20 mg Documented by: Clonazepam (Klonopin) 1 mg PO BID [facility] Stop: 04/21/19 22:01 Last Admin: 10/21/18 20:45 Dose: 1 mg Documented by: Escitalopram Oxalate (Lexapro) 30 mg PO DAILY [facility] Stop: 04/22/19 09:01 Last Admin: 10/21/18 09:11 Dose: 30 mg Documented by: Heparin Sodium (Porcine) (Heparin) 5,000 unit SQ Q8HCO [facility]; Protocol Stop: 04/21/19 23:01 Last Admin: 10/22/18 05:10 Dose: 5,000 unit Documented by: Levothyroxine Sodium (Synthroid) 88 mcg PO 0630 [facility] Stop: 04/22/19 06:31 Last Admin: 10/22/18 05:05 Dose: Not Given Documented by: Lisinopril (Zestril) 5 mg PO DAILY [facility]; Protocol Stop: 04/22/19 09:01 Last Admin: 10/21/18 09:11 Dose: Not Given Documented by: Meclizine HCl (Antivert) 25 mg PO QID PRN PRN Reason: DIZZINESS Mometasone Furoate (Asmanex Hfa) 1 puff IH BIDR [facility] Stop: 04/22/19 10:01 Last Admin: 10/22/18 10:07 Dose: 1 puff Documented by: Nitroglycerin (Nitroglycerin) 0.4 mg SL Q5MPRN PRN PRN Reason: Chest Pain Stop: 04/21/19 21:43 Omeprazole (Prilosec) 40 mg PO DAILY [facility] Stop: 04/22/19 09:01 Last Admin: 10/21/18 09:11 Dose: 40 mg Documented by: Ondansetron HCl (Zofran Odt) 8 mg SL Q8H PRN PRN Reason: Nausea - Imaging and Cardiology Echo: pending - EKG Interpretation EKG results cardiology: no diagnostic ischemia Consult Discharge Plan - Plan Referrals: Chacha Grace APN [Primary Care Provider] -
--- NOTE | 2018-10-22 13:01 | Electrocardiograph Report ---
[address] [address] Test Date: 2018-10-20 Pat Name: Ursula Escoto Department: [id number] Room: [facility] Gender: F Leasing Consultant: : 1945 Requested By: Zehra Aceves Order Number: [id number] Reading MD: Berny Lewis Measurements Intervals [place] Rate: 56 P: 75 [place]: 162 QRS: 49 QRSD: 92 T: 74 QT: 448 QTc: 433 Interpretive Statements Sinus rhythm BASELINE ARTIFACT Electronically Signed On 10-22-2018 12:59:43 EDT by Berny Lewis
[2018-10-22] MEDS: clonazePAM 1 MG TABLET PO SCH ×2 (14:04→21:06)
[2018-10-22] MEDS: Aspirin 81 MG TAB.CHEW PO SCH (14:04)
--- NOTE | 2018-10-22 19:26 | Internal Med Progress Note ---
Hospitalist Progress Note - Encounter Date of Encounter: 10/22/18 Time of Encounter: 11:00 - Subjective Interval History: Patient was seen and examined at bedside currently denies any chest pain we did discuss treatment plan she is being evaluated by cardiology at this time- patient's lung sounds are very tight with little air flow patient states this is her baseline we will try some steroids as well as breathing treatments to see if this improves airflow - Exam Vitals: Temp Pulse Resp BP Pulse Ox 97.8 F 69 17 107/59 95 10/22/18 17:11 10/22/18 17:11 10/22/18 17:11 10/22/18 17:11 10/22/18 17:11 Exam: General: Alert and oriented Skin:Normal color, no rash, no lesions. HEENT:EOM, pupils equal, round and reactive. Cardiovascular:Normal S1 & S2, no rubs, murmurs or gallops. No JVD. Pulse regular. Lungs:Normal breath sounds, no wheezes or crackles. Abdomen:Soft, mild tenderness to palpation diffusely Extremities:No deformity, no edema or tenderness, no joint swelling or clubbing. Neurological:Normal cognition and motor skills. Pulses:Carotid and radial pulses normal +2. Rest of the physical exam is non contributory - Assessment and Plan (1) Chest pain Current Visit: Yes Status: Acute Assessment and Plan: 72-year-old female with history of coronary artery disease status post open heart revascularization at the age of 47 presenting with intermittent episodes of substernal chest pain earlier today and reports of an episode of chest pain waking her up with radiation to the jaw similar presentation to previous MD but with a lesser degree of severity. Improved nitroglycerin. Initial EKG shows sinus bradycardia with a heart rate of 56 with no evidence of ischemia, similar to previous EKG in 2014. Initial troponin negative. Differential includes unstable angina, esophageal spasm, biliary colic or pancreatitis. -Telemetry -Trend troponin -Echocardiogram -Patient states that she has an appointment with cardiology in [place] on Monday. At this time and if troponins remain negative would recommend stress testing, however, due to patient's reported intolerance to pharmacological stress testing, and bronchospastic disease, would discuss with cardiology before proceeding with an appropriate stress testing modality. -Consider cardiology consult 10/22 Cardiology has been consulted and appreciate recommendations Cardiac echo Impressions: LVEF 50-55%. Mild left ventricular diastolic dysfunction. Normal right ventricular structure and function. Mild tricuspid regurgitation. No pulmonary hypertension. Ascending aorta not well visualized, but possible mild dilatation. Troponins are negative (2) Elevated lipase Current Visit: Yes Status: Acute Assessment and Plan: Patient found to have elevated lipase of 352 in the setting of reported 3 day history of epigastric pain which improved by laying on her stomach. CT scan of her abdomen showing no evidence of acute pancreatitis. Unclear patient passed a stone, no elevation in LFTs, but does state her gallbladder is intact -We will reassess lipase in the morning -I upper quadrant ultrasound with no evidence of cholecystitis mild hepatic steatosis (3) COPD (chronic obstructive pulmonary disease) Current Visit: Yes Status: Acute Assessment and Plan: No evidence of acute exacerbation. -Resume home inhalers 10/22 Patient does have a limited air exchange very faint wheezing patient states that this is her baseline we will give steroids as well as some breathing treatments to see if we can improve air exchange. Currently sats are stable (4) CAD (coronary artery disease) Current Visit: Yes Status: Acute Assessment and Plan: History of coronary artery disease status post open heart revascularization at the age of 47. -Continue aspirin and GEO inhibitor. Patient not currently on beta daksha possibly due to bronchospastic disease. (5) DVT prophylaxis Current Visit: Yes Status: Acute Assessment and Plan: Subcutaneous heparin - Time Spent with Patient Total time spent is greater than 50% in coordination of care (as documented) at patient's floor/unit and/or counseling patient: Internal Medicine: Result - Labs CBC & Chem 7: 10/20/18 17:50 10/21/18 00:12 - Impressions Impressions Gallbladder Ultrasound 10/22/18 09:33 IMPRESSION: 1. No evidence of cholecystitis. 2. Mild hepatic steatosis. D/ / Manish Gonzalez MD / Manish Gonzalez MD Interpreting Provider: Manish Gonzalez MD Echocardiogram 10/22/18 15:17 Impressions: LVEF 50-55%. Mild left ventricular diastolic dysfunction. Normal right ventricular structure and function. Mild tricuspid regurgitation. No pulmonary hypertension. Ascending aorta not well visualized, but possible mild dilatation. Left Ventricular Wall Motion: Rest Echo Findings All wall segments showed normal motion. Findings: Study Quality * Technically sub-optimal due to clinical status. ECG Findings * Sinus bradycardia, BBB. Left Ventricle * LVEF 50-55%. * Normal LV chamber size, wall thickness and systolic function. * Mild left ventricular diastolic dysfunction. * Atypical septal motion consistent with bundle branch block. Right Ventricle * Normal right ventricular structure and function. Left Atrium * Normal left atrial size. Right Atrium * Normal right atrial size. Interatrial Septum * Interatrial septum not well evaluated. Aortic Valve * Trileaflet aortic valve with normal function. * No aortic stenosis. * No aortic regurgitation. Mitral Valve * Normal mitral valve structure. * No mitral stenosis. * Trace mitral regurgitation. Tricuspid Valve * Normal tricuspid valve structure. * No tricuspid stenosis. * Mild tricuspid regurgitation. * Estimated RVSP is 25 mmHg. * Estimated RA pressure is 3 mmHg. * No pulmonary hypertension. Pulmonic Valve * Pulmonic valve is not well visualized. * No pulmonic stenosis. * No pulmonic regurgitation. Aorta * Ascending aorta not well visualized, but likely mild dilatation 3.8cm. Pericardium * The pericardium appears normal. IVC * The IVC is not dilated. * > 50% respiratory change Consult Discharge Plan - Plan Referrals: Chacha Grace APN [Primary Care Provider] - 10/31/18 10:40 am (1) Chest pain Qualifiers: Chest pain type: unspecified Qualified Code(s): R07.9 - Chest pain, unspecified (3) COPD (chronic obstructive pulmonary disease) Qualifiers: COPD type: unspecified COPD Qualified Code(s): J44.9 - Chronic obstructive pulmonary disease, unspecified (4) CAD (coronary artery disease) Qualifiers: Coronary Disease-Associated Artery/Lesion type: [place] artery [place] vs. transplanted heart: [place] heart Associated angina: with unspecified angina Qualified Code(s): I25.119 - Atherosclerotic heart disease of [place] coronary artery with unspecified angina pectoris
[2018-10-22] MEDS ORDERED: Ipratropium/Albuterol Neb 3 ML ONE (19:44)
[2018-10-22] MEDS: MethylPREDNISolone 40 MG/ML VIAL IVP SCH (21:02)
[2018-10-23] MEDS: Ipratropium/Albuterol Neb 3 ML IH SCH ×6 (03:54→23:44)
[2018-10-23] MEDS: *HR* Heparin 5,000 UNIT/ML VIAL SQ SCH ×3 (05:26→19:30)
[2018-10-23] MEDS: MethylPREDNISolone 40 MG/ML VIAL IVP SCH (05:29)
[2018-10-23] MEDS ORDERED: MethylPREDNISolone 40 MG/ML VIAL IVP SCH (06:00)
[2018-10-23 07:00] LABS: Hematocrit 39.8 % (35.3-44.9); Immature Granulocytes % 0.3 % (0-4); Lymphocytes # 0.6 K/mcL (0.6-4.6); Lymphocytes % 15.2 %; Mean Corpuscular HGB Conc 32.9 g/dL (31.6-35.5); Mean Corpuscular Hemoglobin 30.2 pg (28.0-33.3); Mean Corpuscular Volume 91.7 fL (83.0-100.0); Mean Platelet Volume 10.6 fL (9.4-12.4); Monocytes # 0.1 K/mcL (0.0-1.3); Monocytes % 2.1 %; Neutrophils # 3.2 K/mcL (1.6-8.9); Platelet Count 174 K/mcL (140-400); Red Blood Count 4.34 M/mcL (3.82-4.97); Red Cell Distribution Width 12.7 % (11.5-14.5); Segmented Neutrophils % 82.4 %; White Blood Count 3.9 K/mcL (4.3-11.1)
[2018-10-23 07:07] LABS: Hemoglobin 13.1 g/dL (11.5-15.4)
[2018-10-23 07:20] LABS: BUN/Creatinine Ratio 18 (6-26); Blood Urea Nitrogen 17 mg/dL (8-23); Calcium 9.5 mg/dL (8.6-10.3); Carbon Dioxide 22 mEq/L (23-29); Chloride 107 mEq/L (98-107); Glucose 255 mg/dL (70-105); Osmolality,Calculated 304 (280-300); Sodium 142 mEq/L (136-145); eGFR For African Americans > 60 (> 60); eGFR For Non-African Americans 57 (> 60)
[2018-10-23 07:21] LABS: Albumin 4.2 g/dL (3.5-5.7); Albumin/Globulin Ratio 2.1 (1.1-2.2); Bilirubin,Direct 0.1 mg/dL (0.0-0.2); Bilirubin,Indirect 0.2 mg/dL (0.0-1.2); Bilirubin,Total 0.3 mg/dL (0.3-1.0); Total Protein 6.2 g/dL (6.4-8.9)
--- NOTE | 2018-10-23 09:04 | Cardiology Progress Note ---
Date of Encounter: 10/23/18 Time of Encounter: 09:01 Assessment and Plan (1) Chest pain Current Visit: Yes Status: Acute 1. Intermittent chest pain over 3 weeks radiated to jaw; relieved by Nitro SL x 1. 2. Troponins negative x 3. Currently chest pain free. Continue Nitro SL PRN. 3. Previously patient states she did not tolerate pharmacological stress testing due to high level of anxiety nor nuclear stress testing r/t COPD. 4. EKG reviewed with no ischemic changes. 24Hr telemetry ave HR 58 sinus wesley on telemetry. 5. Echo Reviewed. EF 50-55%. Mild left ventricular diastolic dysfunction. Mild tricuspid regurgitation. No pulmonary hypertension. NSWMA. 6. Discussed care with patient and Dr. Quintero. Discussed modifiable and non- modifiable risk factors associated with pt. and chest pain. Discussed possible procedure education includinng the risks and benefits of stress testing and LHC vs. medical management. At this time, the patient prefers to do medical management and refuses LHC and stress testing interventions. This may be related to her sons current health status. Pt. will f/u with her sales performance analyst. Qualifiers: Qualified Code(s): R07.9 - Chest pain, unspecified (2) CAD (coronary artery disease) Current Visit: Yes Status: Acute 1. Previous CABG at age 47 completed at [facility]. 2. On ASA, Statin, ACEI, continue. On nitro SL; continue PRN for chest pain. 3. Discussed and reviewed with Dr. Quintero. Will f/u with own sales performance analyst as outpatient. Qualifiers: Qualified Code(s): I25.119 - Atherosclerotic heart disease of [place] coronary artery with unspecified angina pectoris Discussion w patient/family: The assessment and plan as outlined above was discussed with the patient and/or family members who expressed understanding and agreement. All questions were answered. Thank you for involving us in the care of your patient. Please call w ith any questions. Subjective Principal diagnosis: Chest pain Interval history: Denies Chest pain. Admits to mild SOB at baseline with high level of halfway anxiety. Objective Vital Signs, Last 4 Hours Temp Pulse Resp BP Pulse Ox 10/23/18 06:23 97.6 F 68 16 113/68 91 General: Conversant, No Apparent Distress HEENT: Atraumatic, Normocephaly, Mucus Membranes Moist Neck: No JVD, Normal carotid pulses Cardiac: Reg Rate and Rhythm, No Murmur Lungs: Other (bilat anterior/posterior exp. wheezes ) Neuro: Alert and responsive, No focal deficits noted Abdomen: Soft, Non-Tender Skin: No rashes noted on visualized skin Musculoskeletal: No Chest Wall Tenderness Extremities: No Clubbing, No Cyanosis, No Edema, Normal Pulses Results 10/23/18 05:52 10/23/18 05:52 Lab Results Laboratory Tests 10/23/18 10/23/18 05:52 05:52 Hgb 13.1 D Hct 39.8 BUN 17 Creatinine 0.96 Est GFR (Non-Af Amer) 57 L Laboratory Tests 10/20/18 10/21/18 17:50 00:12 Troponin I < 0.03 < 0.03 Impressions Gallbladder Ultrasound 10/22/18 09:33 IMPRESSION: 1. No evidence of cholecystitis. 2. Mild hepatic steatosis. D/ / Manish Gonzalez MD / Manish Gonzalez MD Interpreting Provider: Manish Gonzalez MD Echocardiogram 10/22/18 15:17 Impressions: LVEF 50-55%. Mild left ventricular diastolic dysfunction. Normal right ventricular structure and function. Mild tricuspid regurgitation. No pulmonary hypertension. Ascending aorta not well visualized, but possible mild dilatation. Left Ventricular Wall Motion: Rest Echo Findings All wall segments showed normal motion. Active Medications Albuterol Sulfate (Accuneb) 0.63 mg IH QIDR PRN PRN Reason: Shortness Of Breath Stop: 04/21/19 21:58 Albuterol/Ipratropium (Duoneb) 3 ml IH [id number] [facility] Stop: 04/23/19 20:01 Last Admin: 10/23/18 07:24 Dose: 3 ml Documented by: Aspirin (Aspirin) 81 mg PO DAILY [facility] Stop: 04/22/19 09:01 Last Admin: 10/22/18 14:04 Dose: 81 mg Documented by: Atorvastatin Calcium (Lipitor) 20 mg PO DAILY [facility] Stop: 04/22/19 09:01 Last Admin: 10/22/18 14:04 Dose: 20 mg Documented by: Clonazepam (Klonopin) 1 mg PO BID [facility] Stop: 04/21/19 22:01 Last Admin: 10/22/18 21:06 Dose: 1 mg Documented by: Escitalopram Oxalate (Lexapro) 30 mg PO DAILY [facility] Stop: 04/22/19 09:01 Last Admin: 10/22/18 14:04 Dose: 30 mg Documented by: Heparin Sodium (Porcine) (Heparin) 5,000 unit SQ Q8HCO [facility]; Protocol Stop: 04/21/19 23:01 Last Admin: 10/23/18 05:26 Dose: Not Given Documented by: Levothyroxine Sodium (Synthroid) 88 mcg PO 0630 [facility] Stop: 04/22/19 06:31 Last Admin: 10/23/18 05:29 Dose: 88 mcg Documented by: Lisinopril (Zestril) 5 mg PO DAILY [facility]; Protocol Stop: 04/22/19 09:01 Last Admin: 10/22/18 14:04 Dose: 5 mg Documented by: Meclizine HCl (Antivert) 25 mg PO QID PRN PRN Reason: DIZZINESS Methylprednisolone (Solu-Medrol) 40 mg IVP Q12HR [facility] Stop: 04/23/19 19:31 Last Admin: 10/23/18 05:29 Dose: 40 mg Documented by: Mometasone Furoate (Asmanex Hfa) 1 puff IH BIDR [facility] Stop: 04/22/19 10:01 Last Admin: 10/23/18 07:24 Dose: 1 puff Documented by: Nitroglycerin (Nitroglycerin) 0.4 mg SL Q5MPRN PRN PRN Reason: Chest Pain Stop: 04/21/19 21:43 Omeprazole (Prilosec) 40 mg PO DAILY [facility] Stop: 04/22/19 09:01 Last Admin: 10/22/18 14:04 Dose: 40 mg Documented by: Ondansetron HCl (Zofran Odt) 8 mg SL Q8H PRN PRN Reason: Nausea - Imaging and Cardiology Echo: report reviewed - EKG Interpretation EKG results cardiology: no diagnostic ischemia Consult Discharge Plan - Plan Referrals: Chacha Grace APN [Primary Care Provider] - 10/31/18 10:40 am
--- NOTE | 2018-10-23 09:35 | Discharge Summary ---
- NOTES TO OUTPATIENT PROVIDER Notes to Outpatient Provider: will need to follow up with cardiology as out patient - nitroglycerin sublingual as needed. will give steroid burst. Azithromycin Date of Encounter: 10/23/18 Time of Encounter: 09:33 - Discharge Diagnosis (1) Chest pain Priority: Primary Status: Acute Qualifiers: Chest pain type: unspecified Qualified Code(s): R07.9 - Chest pain, unspecified (2) Elevated lipase Priority: Secondary Status: Acute (3) COPD (chronic obstructive pulmonary disease) Priority: Secondary Status: Acute Qualifiers: COPD type: unspecified COPD Qualified Code(s): J44.9 - Chronic obstructive pulmonary disease, unspecified (4) CAD (coronary artery disease) Priority: Secondary Status: Acute Qualifiers: Coronary Disease-Associated Artery/Lesion type: [place] artery [place] vs. transplanted heart: [place] heart Associated angina: with unspecified angina Qualified Code(s): I25.119 - Atherosclerotic heart disease of [place] coronary artery with unspecified angina pectoris Hospital course: Ms. Escoto is a 72 year old female past medical history of COPD type 2 diabetes hyperlipidemia hypertension CAD status post CABG presented to [facility] ED with intermittent chest pain which initiated while at rest. Pain was nonradiating increased in frequency throughout the day but there were no aggravating or re lieving factors. However after arriving to the ED patient was given nitroglycerin which did resolve. Patient has been experiencing similar pain the past month which radiated to her jaw will woke her from sleep with intermittent diaphoresis. Originally patient has declined stress test she is unable to perform due to increased anxiety and COPD-she states she attempted stress in 2009 and was unable to complete due to these factors. She is to follow-up with a highway maintenance supervisor in [place] on Monday. Patient states she has been under a lot of stress since her son has colon cancer as well as her ex- is very L and she has been caring for them. Troponins have been negative cardiac echo with EF of 50-55% patient was seen by cardiology who offered patient a stress test and [facility] but patient has declined. Cardiology is recommending continuation of aspirin and statin patient is unable take a beta daksha due to severe COPD - when necessary nitroglycerin added per cardiology's recommendations. Patient will follow-up with cardiology as outpatient for further workup and testing. Patient did have a elevation and lipase on presentation however this has trended down since admission and hepatic panel has been normal. We did obtain a right upper quadrant ultrasound which was negative for any will cystitis and CT of the abdomen with nothing acute. Patient has not been experiencing any abdominal pain and will have patient follow-up as outpatient with PCP. Patient does have some wheezing throughout her lung huertas and limited air exchange-A she was given IV Solu-Medrol during admission- however patient continues to experience some shortness of breath as well as tightness in her chest we will increase her IV steroids and monitor overnight adding azithromycin as well. We will defer discharge at this time and reevaluate in the a.m. - Time Spent with Patient Total time spent providing and/or coordinating discharge services: - Discharge Medications Prescriptions: New Nitroglycerin 0.4 mg SL Q5MPRN PRN #30 tab.subl PRN Reason: Chest Pain Continued Biotin 1 mg PO QAM Escitalopram [Lexapro] 30 mg PO QAM Magnesium 250 mg PO QPM metFORMIN [Glucophage] 500 mg PO BIDWM Aspirin [Lo-Dose Aspirin EC] 81 mg PO DAILY Levothyroxine [Synthroid] 88 mcg PO 0630 clonazePAM [Clonazepam] 1 mg PO BID Pantoprazole Sodium [Protonix] 40 mg PO QAM No Action Cetirizine HCl [Allergy Relief] 10 mg PO BID Lubiprostone [Amitiza] 24 mcg PO DAILY Meclizine HCl [Verticalm] 25 mg PO QID PRN PRN Reason: Dizziness Rosuvastatin Calcium [Crestor] 10 mg PO QPM Ipratropium/Albuterol Sulfate [Combivent Respimat Inhal [place]] 4 gm IH TID Lisinopril [Zestril] 5 mg PO QAM Home Medications: Aspirin [Lo-Dose Aspirin EC] 81 mg PO DAILY 03/23/18 [History] Ipratropium/Albuterol Sulfate [Combivent Respimat Inhal [place]] 4 gm IH TID 03/23/18 [History] Levothyroxine [Synthroid] 88 mcg PO 0630 03/23/18 [History] Lisinopril [Zestril] 5 mg PO QAM 03/23/18 [History] Meclizine HCl [Verticalm] 25 mg PO QID PRN 03/23/18 [History] Pantoprazole Sodium [Protonix] 40 mg PO QAM 03/23/18 [History] Rosuvastatin Calcium [Crestor] 10 mg PO QPM 03/23/18 [History] clonazePAM [Clonazepam] 1 mg PO BID 03/23/18 [History] metFORMIN [Glucophage] 500 mg PO BIDWM 03/23/18 [History] Biotin 1 mg PO QAM 10/21/18 [History] Cetirizine HCl [Allergy Relief] 10 mg PO BID 10/21/18 [History] Escitalopram [Lexapro] 30 mg PO QAM 10/21/18 [History] Lubiprostone [Amitiza] 24 mcg PO DAILY 10/21/18 [History] Magnesium 250 mg PO QPM 10/21/18 [History] Nitroglycerin 0.4 mg SL Q5MPRN PRN #30 tab.subl 10/23/18 [Rx] Allergies/Adverse Reactions: Allergy/AdvReac Type Severity Reaction Status Date / Time Sulfa (Sulfonamide Allergy Swelling Verified 10/21/18 16:30 Antibiotics) of Lip/Tongue/Throat Date of admission: 10/20/18 21:06 Primary care physician: Chacha Grace APN Consults: 10/21/18 13:21 Consult to Cardiology [CONS] Routine Comment: Consulting Provider: Cardiology Leora Reason for Consult: CP refusing stress hx of CABG Time Notified: 13:21 Call Completed: Yes Discharging clinician: Carissa Loya Anticipated date of discharge: 10/23/18 - Constitutional Vitals: Temp Pulse Resp BP Pulse Ox 97.6 F 68 16 113/68 91 10/23/18 06:23 10/23/18 06:23 10/23/18 06:23 10/23/18 06:23 10/23/18 06:23 Exam: General: Alert and oriented Skin:Normal color, no rash, no lesions. HEENT:EOM, pupils equal, round and reactive. Cardiovascular:Normal S1 & S2, no rubs, murmurs or gallops. No JVD. Pulse regular. Lungs:Normal breath sounds, no wheezes or crackles. Abdomen:Soft, mild tenderness to palpation diffusely Extremities:No deformity, no edema or tenderness, no joint swelling or clubbing. Neurological:Normal cognition and motor skills. Pulses:Carotid and radial pulses normal +2. Rest of the physical exam is non contributory - Patient Status Disposition: Home, Self-Care Condition: Good Functional capacity at discharge: independent ambulation Overall status at discharge: patient is back to baseline - Discharge Instructions Follow Up With: Chacha Grace APN [Primary Care Provider] - 10/31/18 10:40 am - Diet and Activity Activity: increase activity as tolerated Diet: advance to your usual diet
[2018-10-23 09:36] LABS: Lipase 42 Units/L (11-82)
[2018-10-23] MEDS: Aspirin 81 MG TAB.CHEW PO SCH (09:55)
[2018-10-23] MEDS: clonazePAM 1 MG TABLET PO SCH ×2 (09:56→19:30)
--- NOTE | 2018-10-23 10:26 | Internal Med Progress Note ---
Hospitalist Progress Note - Encounter Date of Encounter: 10/23/18 Time of Encounter: 10:26 - Subjective Interval History: Was seen and examined at bedside she was evaluated by cardiology this morning she is declining [facility] any further testing by cardiology she will follow-up as an outpatient. Anticipate discharge today however patient continues to expe rience diminished breath sounds and states that she feels rather tight today. We will increase her IV steroids and the frequency of breathing treatments. We will reevaluate in the a.m. for possible discharge - Exam Vitals: Temp Pulse Resp BP Pulse Ox 97.6 F 68 16 113/68 91 10/23/18 06:23 10/23/18 06:23 10/23/18 06:23 10/23/18 06:23 10/23/18 06:23 Exam: General: Alert and oriented Skin:Normal color, no rash, no lesions. HEENT:EOM, pupils equal, round and reactive. Cardiovascular:Normal S1 & S2, no rubs, murmurs or gallops. No JVD. Pulse regular. Lungs: Breath Sounds are diminished with some faint wheezing Abdomen:Soft, mild tenderness to palpation diffusely Extremities:No deformity, no edema or tenderness, no joint swelling or clubbing. Neurological:Normal cognition and motor skills. Pulses:Carotid and radial pulses normal +2. Rest of the physical exam is non contributory - Assessment and Plan (1) Chest pain Current Visit: Yes Status: Acute Assessment and Plan: 72-year-old female with history of coronary artery disease status post open heart revascularization at the age of 47 presenting with intermittent episodes of substernal chest pain earlier today and reports of an episode of chest pain waking her up with radiation to the jaw similar presentation to previous AL but with a lesser degree of severity. Improved nitroglycerin. Initial EKG shows sinus bradycardia with a heart rate of 56 with no evidence of ischemia, similar to previous EKG in 2014. Initial troponin negative. Differential includes unstable angina, esophageal spasm, biliary colic or pancreatitis. -Telemetry -Trend troponin -Echocardiogram -Patient states that she has an appointment with cardiology in [place] on Monday. At this time and if troponins remain negative would recommend stress testing, however, due to patient's reported intolerance to pharmacological stress testing, and bronchospastic disease, would discuss with cardiology before proceeding with an appropriate stress testing modality. -Consider cardiology consult 10/22 Cardiology has been consulted and appreciate recommendations Cardiac echo Impressions: LVEF 50-55%. Mild left ventricular diastolic dysfunction. Normal right ventricular structure and function. Mild tricuspid regurgitation. No pulmonary hypertension. Ascending aorta not well visualized, but possible mild dilatation. Troponins are negative 10/23 Troponins have been negative cardiac echo with preserved EF she was evaluated by cardiology has offered [facility] however patient has declined patient is advised to follow-up with primary care provider as well as radiology she does have an appointment next week. Radiology recommending continue with aspirin and statin patient and not take beta dkasha due to severe COPD she will also be discharged with when necessary nitroglycerin. Unable take Imdur at this time due to low blood pressure. (2) Elevated lipase Current Visit: Yes Status: Acute Assessment and Plan: Patient found to have elevated lipase of 352 in the setting of reported 3 day history of epigastric pain which improved by laying on her stomach. CT scan of her abdomen showing no evidence of acute pancreatitis. Unclear patient passed a stone, no elevation in LFTs, but does state her gallbladder is intact -We will reassess lipase in the morning -I upper quadrant ultrasound with no evidence of cholecystitis mild hepatic steatosis 10/23 No abdominal pain Upper quadrant ultrasound with no evidence of cholecystitis mild hepatic s teatosis CT of abdomen with no evidence of acute pancreatitis Lipase has returned back to baseline advised patient follow-up with primary care provider (3) COPD (chronic obstructive pulmonary disease) Current Visit: Yes Status: Acute Assessment and Plan: No evidence of acute exacerbation. -Resume home inhalers 10/22 Patient does have a limited air exchange very faint wheezing patient states that this is her baseline we will give steroids as well as some breathing treatments to see if we can improve air exchange. Currently sats are stable 10/23 Patient's lung sounds are diminished with some faint wheezing patient does say she has some difficulty breathing We will increase steroids as well as breathing treatments and add azithromycin (4) CAD (coronary artery disease) Current Visit: Yes Status: Acute Assessment and Plan: History of coronary artery disease status post open heart revascularization at the age of 47. -Continue aspirin and GEO inhibitor. Patient not currently on beta daksha possibly due to bronchospastic disease. 10/23 Continue with aspirin and statin currently down beta daksha due to bronchospastic disease Nitroglycerin as needed - Time Spent with Patient Total time spent is greater than 50% in coordination of care (as documented) at patient's floor/unit and/or counseling patient: Internal Medicine: Result - Labs CBC & Chem 7: 10/23/18 05:52 10/23/18 05:52 Labs: Short CBC 10/23/18 Range/Units 05:52 WBC 3.9 L (4.3-11.1) K/mcL Hgb 13.1 D (11.5-15.4) g/dL Hct 39.8 (35.3-44.9) % Plt Count 174 (140-400) K/mcL Neutrophils # 3.2 (1.6-8.9) K/mcL BMP 10/23/18 05:52 Sodium 142 Potassium 4.0 Chloride 107 Carbon Dioxide 22 L BUN 17 Creatinine 0.96 Glucose 255 H Calcium 9.5 Liver Function 10/23/18 Range/Units 05:52 Total Bilirubin 0.3 (0.3-1.0) mg/dL Direct Bilirubin 0.1 (0.0-0.2) mg/dL AST 11 L (13-39) Units/L ALT 9 (7-52) Units/L Alkaline Phosphatase 37 (34-104) Units/L Albumin 4.2 (3.5-5.7) g/dL - Impressions Impressions Echocardiogram 10/22/18 15:17 Impressions: LVEF 50-55%. Mild left ventricular diastolic dysfunction. Normal right ventricular structure and function. Mild tricuspid regurgitation. No pulmonary hypertension. Ascending aorta not well visualized, but possible mild dilatation. Left Ventricular Wall Motion: Rest Echo Findings All wall segments showed normal motion. Findings: Study Quality * Technically sub-optimal due to clinical status. ECG Findings * Sinus bradycardia, BBB. Left Ventricle * LVEF 50-55%. * Normal LV chamber size, wall thickness and systolic function. * Mild left ventricular diastolic dysfunction. * Atypical septal motion consistent with bundle branch block. Right Ventricle * Normal right ventricular structure and function. Left Atrium * Normal left atrial size. Right Atrium * Normal right atrial size. Interatrial Septum * Interatrial septum not well evaluated. Aortic Valve * Trileaflet aortic valve with normal function. * No aortic stenosis. * No aortic regurgitation. Mitral Valve * Normal mitral valve structure. * No mitral stenosis. * Trace mitral regurgitation. Tricuspid Valve * Normal tricuspid valve structure. * No tricuspid stenosis. * Mild tricuspid regurgitation. * Estimated RVSP is 25 mmHg. * Estimated RA pressure is 3 mmHg. * No pulmonary hypertension. Pulmonic Valve * Pulmonic valve is not well visualized. * No pulmonic stenosis. * No pulmonic regurgitation. Aorta * Ascending aorta not well visualized, but likely mild dilatation 3.8cm. Pericardium * The pericardium appears normal. IVC * The IVC is not dilated. * > 50% respiratory change Consult Discharge Plan - Plan Referrals: Chacha Grace APN [Primary Care Provider] - 10/31/18 10:40 am (1) Chest pain Qualifiers: Chest pain type: unspecified Qualified Code(s): R07.9 - Chest pain, unspecified (3) COPD (chronic obstructive pulmonary disease) Qualifiers: COPD type: unspecified COPD Qualified Code(s): J44.9 - Chronic obstructive pulmonary disease, unspecified (4) CAD (coronary artery disease) Qualifiers: Coronary Disease-Associated Artery/Lesion type: [place] artery [place] vs. transplanted heart: [place] heart Associated angina: with unspecified angina Qualified Code(s): I25.119 - Atherosclerotic heart disease of [place] coronary artery with unspecified angina pectoris
[2018-10-23] MEDS ORDERED: Azithromycin 500 MG in 0.9 % Sodium Chloride 250 ML IVPB SCH (11:00)
[2018-10-23] MEDS: methylPREDNISolone 125 MG/2 ML VIAL IVP SCH ×3 (13:15→23:22)
[2018-10-23] MEDS ORDERED: D5% in Water 1,000 ML IVC PRN (13:15)
[2018-10-23] MEDS ORDERED: Dextrose Gel 15 GM/37.5 ML TUBE PO PRN ×2 (13:15)
[2018-10-23] MEDS ORDERED: *HR* Dextrose 50 % in Water (Syg) 50 ML SYRINGE IVP PRN (13:15)
[2018-10-23] MEDS: Insulin LISPRO 300 UNITS/3 ML VIAL SQ SCH (17:01)
[2018-10-23] MEDS ORDERED: Insulin LISPRO 300 UNITS/3 ML VIAL SQ SCH (21:00)
[2018-10-24] MEDS: Ipratropium/Albuterol Neb 3 ML IH SCH ×2 (03:51→07:21)
[2018-10-24] MEDS ORDERED: Ibuprofen 400 MG TABLET PO PRN (04:27)
[2018-10-24] MEDS: methylPREDNISolone 125 MG/2 ML VIAL IVP SCH (06:40)
[2018-10-24] MEDS: *HR* Heparin 5,000 UNIT/ML VIAL SQ SCH (06:40)
[2018-10-24 07:35] VITALS: BP 120/54
[2018-10-24] MEDS: Aspirin 81 MG TAB.CHEW PO SCH (09:26)
[2018-10-24] MEDS: clonazePAM 1 MG TABLET PO SCH (09:26)
[2018-10-24] MEDS: Insulin LISPRO 300 UNITS/3 ML VIAL SQ SCH (09:27)
== END 2018-10-24 10:57 | disposition home or self-care (01) ==
LOC: EMEROOARM 17:45 → 3BNU 17:45
PROVIDERS: ADMIT Internal Medicine; ATTEND Internal Medicine

== ENCOUNTER 2019-04-19 12:49 | Observation (INO) ==
[2019-04-19] MEDS ORDERED: Ipratropium/Albuterol Neb 3 ML IH ONE (13:25)
[2019-04-19] MEDS ORDERED: predniSONE 20 MG TABLET PO ONE (13:26)
[2019-04-19 14:03] LABS: Basophils % 0.3 %; Eosinophils # 0.5 K/mcL (0.0-0.6); Eosinophils % 7.1 %; Hematocrit 44.1 % (35.3-44.9); Hemoglobin 15.1 g/dL (11.5-15.4); Immature Granulocytes % 0.4 % (0-4); Lymphocytes # 2.1 K/mcL (0.6-4.6); Lymphocytes % 28.4 %; Mean Corpuscular HGB Conc 34.2 g/dL (31.6-35.5); Mean Corpuscular Hemoglobin 30.8 pg (28.0-33.3); Mean Platelet Volume 9.7 fL (9.4-12.4); Monocytes # 0.7 K/mcL (0.0-1.3); Monocytes % 9.1 %; Platelet Count 217 K/mcL (140-400); Red Cell Distribution Width 13.2 % (11.5-14.5); Segmented Neutrophils % 54.7 %; White Blood Count 7.2 K/mcL (4.3-11.1)
[2019-04-19] MEDS ORDERED: *HR* LORazepam 2 MG/ML VIAL IVP ONE (14:28)
[2019-04-19 14:54] LABS: BUN/Creatinine Ratio 13 (6-26); Blood Urea Nitrogen 11 mg/dL (8-23); Calcium 9.4 mg/dL (8.6-10.3); Carbon Dioxide 24 mEq/L (23-29); Chloride 104 mEq/L (98-107); Glucose 85 mg/dL (70-105); Osmolality,Calculated 285 (280-300); Potassium 3.9 mEq/L (3.5-5.1); Sodium 138 mEq/L (136-145); Troponin I < 0.03 ng/mL (< 0.04); eGFR For African Americans > 60 (> 60); eGFR For Non-African Americans > 60 (> 60)
[2019-04-19] MEDS ORDERED: Naloxone 0.4 MG/ML INJ IVP PRN (16:07)
[2019-04-19] MEDS ORDERED: Ondansetron 4 MG/2 ML VIAL IVP PRN (16:07)
[2019-04-19] MEDS ORDERED: Nitroglycerin 0.4 MG TAB.SUBL SL PRN (16:08)
[2019-04-19] MEDS ORDERED: HYDROcodone BIT/Homatropine LQ 5 MG/5 ML UDC PO PRN (16:42)
[2019-04-19] MEDS ORDERED: Dextrose Gel 15 GM/37.5 ML TUBE PO PRN ×2 (16:42)
[2019-04-19] MEDS ORDERED: D5% in Water 1,000 ML IVC PRN (16:42)
[2019-04-19] MEDS ORDERED: *HR* Dextrose 50 % in Water (Syg) 50 ML SYRINGE IVP PRN (16:42)
[2019-04-19] MEDS: *HR* Heparin 5,000 UNIT/ML VIAL SQ SCH (18:36)
[2019-04-19] MEDS: Insulin LISPRO 300 UNITS/3 ML VIAL SQ SCH ×2 (18:36→21:10)
[2019-04-19] MEDS: Ipratropium/Albuterol Neb 3 ML IH SCH ×2 (20:21→23:28)
[2019-04-19 20:48] LABS: Adenovirus Not Detected (Not Detect); Bordetella Pertussis Not Detected (Not Detect); Chlamydophila pneumoniae Not Detected (Not Detect); Coronavirus 229E Not Detected (Not Detect); Coronavirus HKU1 Not Detected (Not Detect); Coronavirus NL63 Not Detected (Not Detect); Coronavirus OC43 Not Detected (Not Detect); Human Metapneumovirus Not Detected (Not Detect); Human Rhinovirus/Enterovirus Not Detected (Not Detect); Influenza A Subtype 2009 H1 Not Detected (Not Detect); Influenza B Not Detected (Not Detect); Mycoplasma pneumoniae Not Detected (Not Detect); Parainfluenza Virus 1 Not Detected (Not Detect); Parainfluenza Virus 2 Not Detected (Not Detect); Parainfluenza Virus 3 Not Detected (Not Detect); Parainfluenza Virus 4 Not Detected (Not Detect); Respiratory Syncytial Virus Not Detected (Not Detect)
[2019-04-19] MEDS: clonazePAM 1 MG TABLET PO SCH (21:16)
[2019-04-20] MEDS: Ipratropium/Albuterol Neb 3 ML IH SCH ×5 (03:29→23:56)
[2019-04-20] MEDS: *HR* Heparin 5,000 UNIT/ML VIAL SQ SCH ×2 (05:47→17:19)
[2019-04-20] MEDS: MethylPREDNISolone 40 MG/ML VIAL IVP SCH ×2 (07:10→17:19)
[2019-04-20] MEDS: clonazePAM 1 MG TABLET PO SCH ×2 (07:10→20:56)
[2019-04-20] MEDS: Aspirin Enteric Coated 81 MG Tablet PO SCH (07:10)
[2019-04-20] MEDS ORDERED: Insulin LISPRO 300 UNITS/3 ML VIAL SQ SCH (07:30)
[2019-04-20] MEDS ORDERED: lisinopriL 5 MG TABLET PO SCH (09:00)
[2019-04-20] MEDS ORDERED: MethylPREDNISolone 40 MG/ML VIAL ONE (11:46)
[2019-04-20] MEDS ORDERED: Ipratropium/Albuterol Neb 3 ML ONE ×2 (11:46→15:23)
[2019-04-20] MEDS ORDERED: Nystatin SUSP 5 ML UD.LIQ ONE (11:59)
[2019-04-20] MEDS: Insulin LISPRO 300 UNITS/3 ML VIAL SQ SCH ×4 (16:18→20:57)
[2019-04-20] MEDS: Nystatin SUSP 5 ML UD.LIQ PO SCH ×2 (17:19→20:56)
[2019-04-21] MEDS: Ipratropium/Albuterol Neb 3 ML IH SCH ×3 (03:57→11:18)
[2019-04-21] MEDS: *HR* Heparin 5,000 UNIT/ML VIAL SQ SCH (05:08)
[2019-04-21] MEDS: MethylPREDNISolone 40 MG/ML VIAL IVP SCH (05:08)
[2019-04-21 07:41] VITALS: BP 99/64
[2019-04-21] MEDS: Insulin LISPRO 300 UNITS/3 ML VIAL SQ SCH (08:15)
[2019-04-21] MEDS: Aspirin Enteric Coated 81 MG Tablet PO SCH (08:16)
[2019-04-21] MEDS: Nystatin SUSP 5 ML UD.LIQ PO SCH (08:16)
[2019-04-21] MEDS: clonazePAM 1 MG TABLET PO SCH (08:16)
== END 2019-04-21 13:53 | disposition home or self-care (01) ==
LOC: EMEROOARM 12:49 → 3BNU 12:49 → SUATTDRO 16:32 → 3BNU 17:43
PROVIDERS: ADMIT Family Medicine; ATTEND Internal Medicine